=== PATIENT | female | born 1995 | race Caucasian/White ===

== ENCOUNTER 2017-02-02 17:26 | Emergency (ER) | payer BC, OTHER ==
[~2017-02-02 17:26] MED LIST: Iopamidol 370 76% 100 ML VIAL ONE
[2017-02-02] MEDS ORDERED: Ondansetron HCl/PF 4 MG/2 ML Vial ONE (17:48)
[2017-02-02 17:56] LABS: Bilirubin Negative (Negative); Blood, Urine Trace (Negative); Glucose, Urine (Dipstick) Negative (Negative); Ketone, Urine Negative (Negative); Nitrite Negative (Negative); Protein, Urine (Dipstick) Negative (Neg-Trace); Urobilinogen 0.2 mg/dL (0.2-1.0)
[2017-02-02 17:57] LABS: #Basophils 0.3 thou/uL (0.0-0.2); #Lymphocytes 2.9 thou/uL (1.20-3.40); #Monocytes 1.7 thou/uL (0.11-0.59); #Neutrophils 14.1 thou/uL (1.40-6.50); %Basophils 1.3 % (0.0-1.0); %Eosinophils 4.8 % (0.0-10.0); %Lymphocytes 14.4 % (21.0-51.0); %Monocytes 8.4 % (0.0-10.0); Hematocrit 39.1 % (36.0-47.0); Mean Platelet Volume 7.1 fL (7.4-10.4); Red Blood Cell (RBC) Count 4.64 mill/uL (4.20-5.40); White Blood Cell (WBC) Count 19.9 thou/uL (4.8-10.8)
[2017-02-02 18:01] LABS: Bacteria/HPF Rare-Few HPF (None Seen); RBC/HPF 0-3 HPF (0-3); WBC/HPF None Seen HPF (0-3)
[2017-02-02 18:10] LABS: ALT (SGPT) 8 U/L (8-55); AST (SGOT) 16 U/L (5-34); Alkaline Phosphatase 72 U/L (40-150); Anion Gap 16 mmol/L (10-20); BUN (Urea Nitrogen) 11 mg/dL (7.0-18.7); Bilirubin, Total 0.7 mg/dL (0.2-1.2); Calc. Creatinine Clearance 0 mL/min (70-130); Calcium 9.7 mg/dL (7.8-10.44); Carbon Dioxide 22 mmol/L (22-29); Chloride 105 mmol/L (98-107); Estimated GFR-MDRD Greater than 90; Globulin 3.4 g/dL (2.4-3.5); Protein, Total 7.9 g/dL (6.0-8.3)
[2017-02-02] MEDS ORDERED: Ketorolac Tromethamine 30 MG/ML VIAL ONE (19:06)
--- NOTE | 2017-02-02 20:14 | CT ---
CT OF THE ABDOMEN AND PELVIS WITH IV CONTRAST ONLY: Indication: Sudden onset of right sided abdominal pain that occurred late last night but has worsene d this morning around 0500 with report of some dysuria. Comparison: None. Contrast: 100 cc of Isovue 370 FINDINGS: ABDOMEN: There is a small pulmonary cyst involving the posterolateral right lower lobe. The liver, spleen, pancreas, adrenal glands, and kidneys are normal appearing. No free fluid or enlarged lymph nodes are evident. PELVIS: The appendix is normal in the right lower quadrant measuring 5 mm. There is a 2 cm oval hypodensity consistent with a cyst involving the right adnexa. There is more co mplex appearing hypodense fluid seen within the cul-de-sac of [place] suspicious for some physiologi c fluid but also possibly a small amount of pertinacious fluid or hemorrhage. There is some inflamma tory stranding seen surrounding the right adnexa, particularly on image 71 of series 2. There are sm all follicles within the left ovary. The uterus and bladder appear within normal limits for CT. The unopacified large and small bowel appear within normal limits. OSSEOUS STRUCTURES: There is a small bone island within the left pubic body as well as the left acetabulum. No acute osseous abnormality is evident. There is very slight levoscoliosis of the lumbar spine. IMPRESSION: 1. Findings most suspicious for ruptured follicular cyst from with right ovary with a small amount o f hemorrhage and physiologic fluid within the cul-de-sac. Pelvic ultrasound may be helpful to confir m this finding. 2. Normal appendix in the right lower quadrant. 3. No additional abnormality demonstrated. POS: [facility]
[2017-02-02] MEDS ORDERED: Morphine Sulfate 2 MG/ML SYRINGE ONE (21:10)
--- NOTE | 2017-02-02 23:48 | ULT ---
TRANSABDOMINAL AND TRANSVAGINAL PELVIC ULTRASOUND: Indication: Right sided abdominal pain. Technique: Grayscale, color doppler, and vascular duplex with spectral analysis was performed of the pelvis via a transabdominal and transvaginal approach. Comparison: CT abdomen and pelvis 02-02-17 FINDINGS: The uterus measures 7 x 3.5 x 4.7 cm. The endometrial stripe is 1.1 cm. The right ovary measures 3.2 x 3 x 2.8 cm. There is a 1.8 cm cyst within the right ovary. There is mild to moderate free fluid within the pelvis. The left ovary is not seen. IMPRESSION: 1. Normal flow is seen to the right ovary. There is a right ovarian follicular cyst present. There i s moderate free fluid within the pelvis. Findings may reflect sequellae of partial rupture. 2. Nonvisualization of the left ovary. The left ovary was seen on the CT examination adjacent to the internal iliac vessels and demonstrates on the comparison CT as having some small follicles. POS: [facility]
== END 2017-02-02 22:15 | disposition home or self-care (01) ==
LOC: SCSER 17:26
DX: N83.201 Unspecified ovarian cyst, right side (principal)
CPT/HCPCS: 74177; 76856; 80053; 81003; 81015; 84703; 85025; 96374; 96375; 96376; J1885; J2270; J2405